=== PATIENT | female | born 1990 | race Caucasian/White ===

== ENCOUNTER 2022-09-23 15:35 | Emergency (ER) | payer OTHER, SELFPAY ==
[2022-09-23] VITALS (9 sets, daily range): BP systolic 106–125; BP diastolic 51–66; PULSE 52–65; RESP 16–19; O2SAT 99–100; BMI 21.5
--- NOTE | 2022-09-23 15:43 | ED.GENADULT ---
HPI - General Adult General Chief complaint: Allergic Reaction Stated complaint: Multiple Bee stings, Allergic reaction Time Seen by Provider: 09/23/22 15:40 Source: patient Mode of arrival: Ambulatory Limitations: no limitations History of Present Illness HPI narrative: Patient is a 32-year-old female who approximately 3 hours ago was stung on the back of her right shoulder and also the top of her head by a bee. He is not had a reaction in the past this. She has had 2 Benadryl prior to arrival. She stated that after it happened she did vomit. There was also a syncopal episode. No chest pain or shortness of breath. No problems breathing. Related Data Allergies Allergy/AdvReac Type Severity Reaction Status Date / Time bee venom protein (honey bee) Allergy Unconscious Verified 09/23/22 15:47 Review of Systems Review of Systems ROS Unobtainable: All systems reviewed & are unremarkable except as noted in HPI and below Patient History Social History Smoking Status: Never smoker Exam Initial Vital Signs Initial Vital Signs: Vital Signs Pulse Rate 58 L 09/23/22 15:44 Pulse Oximetry 100 09/23/22 15:44 Const General: cooperative, comfortable and No ill appearing HENIL Head: normal to inspection, normocephalic, No contusion, No laceration and No scalp lesion Resp Effort & Inspection: normal respiratory effort Auscultation: clear to auscultation bilaterally Cardio Rate: regular rate Rhythm: regular rhythm GI Inspection: normal to inspection Skin Other: 1 cm x 1 cm area of erythema in the posterior aspect of the right shoulder. Neuro General: patient alert, patient awake and moves all extremities Extrem General: capillary refill normal Course Orders Ordered: Discontinued Medications Sodium Chloride (Normal Saline 0.9%) 1,000 mls @ 1,000 mls/hr IV BOLUS ONE Stop: 09/23/22 16:42 Last Infusion: 09/23/22 16:48 Dose: 0 mls/hr Documented By: Admin: 09/23/22 15:57 Dose: 1,000 mls/hr Documented By: RB Methylprednisolone (Methylprednisolone 125 Mg/2 Ml Vial) 125 mg IV NOW ONE Stop: 09/23/22 15:44 Last Admin: 09/23/22 15:57 Dose: 125 mg Documented By: RB Vital Signs Vital signs: Vital Signs - 8 hr 09/23/22 15:47 09/23/22 15:44 09/23/22 15:45 Pulse Rate 58 L 58 L Respiratory Rate 16 Blood Pressure 122/59 L 123/62 Pulse Oximetry 100 100 Oxygen Delivery Method Room Air Oxygen Flow Rate 97.1 09/23/22 15:45 09/23/22 16:00 09/23/22 16:00 Pulse Rate 60 52 L Respiratory Rate Blood Pressure 114/56 L Pulse Oximetry 100 100 Oxygen Delivery Method Oxygen Flow Rate 09/23/22 16:15 09/23/22 16:15 09/23/22 16:30 Pulse Rate 57 L Respiratory Rate Blood Pressure 117/61 125/61 Pulse Oximetry 100 Oxygen Delivery Method Oxygen Flow Rate 09/23/22 16:30 Pulse Rate 59 L Respiratory Rate Blood Pressure Pulse Oximetry 100 Oxygen Delivery Method Oxygen Flow Rate Medical Decision Making MDM Narrative Medical decision making narrative: Patient had already received Benadryl prior to arrival so she was given steroids here in the ER. After period of observation she had no worsening of her symptoms and actually improvement of symptoms. No problems breathing. No vomiting. Will discharge patient home with return precautions. Discharge Plan Departure Patient Disposition: Home Clinical Impression: Bee sting reaction Instructions: Insect Bites and Stings Activity Restrictions/Additional Instructions: You can continue to take 25 mg of Benadryl every 6 hours as needed for any itching or redness. Return to the emergency department for new or worsening symptoms. Stand Alone Forms: Patient Portal/API
[2022-09-23] MEDS: SODIUM CHLORIDE 0.9% 1,000 ML 1000 ML IV (15:57)
[2022-09-23] MEDS: methylPREDNISolone 125 MG/2 ML VIAL IV (15:57)
== END 2022-09-23 17:25 | disposition home or self-care (01) ==
PROVIDERS: Emergency Provider Emergency Medicine
DX: T63.441A Toxic effect of venom of bees, accidental (unintentional), initial encounter (principal); R55 Syncope and collapse; R11.10 Vomiting, unspecified
CPT/HCPCS: 36415; 96361; 96374; 99284; J2930